=== PATIENT | female | born 1935 | race Caucasian/White ===

== ENCOUNTER 2020-08-23 09:42 | Emergency (ER) | payer MEDICARE, BC ==
[~2020-08-23] VITALS: Ht 157.5 cm; Wt 72.7 kg
[~2020-08-23 09:42] MED LIST: TAGAMETTAB
[2020-08-23] MEDS ORDERED: CEPHALEXIN500 MG PO (10:28)
[2020-08-23] MEDS ORDERED: PREDNISONE 20 M20 M1 PO (10:28)
[2020-08-23] MEDS ORDERED: BACTRIM DS TAB1 EACH PO (10:28)
[2020-08-23 10:52] VITALS: BP 187/91
== END 2020-08-23 10:54 | disposition home or self-care (01) ==
LOC: M.ERS 09:42
DX: L03.116 Cellulitis of left lower limb (principal); L30.9 Dermatitis, unspecified; I10 Essential (primary) hypertension; Z98.890 Other specified postprocedural states